=== PATIENT | female | born 1990 | race Caucasian/White ===

== ENCOUNTER 2019-12-31 23:53 | Inpatient (IN) ==
[2020-01-01] MEDS ORDERED: MEPERIDINE 50 MG/1 ML VIAL IV PRN (00:03)
[2020-01-01] MEDS ORDERED: BUTORPHANOL 2 MG/ML VIAL IV PRN (00:03)
[2020-01-01] MEDS ORDERED: ONDANSETRON 4 MG/2 ML VIAL IV PRN ×2 (00:03→19:56)
[2020-01-01] MEDS: LACTATED RINGERS 1,000 ML IV SCH ×2 (00:33→07:56)
[2020-01-01] MEDS: OXYTOCIN/LR 20 UNIT/1,000 ML BAG IV SCH ×2 (01:05→20:31)
[2020-01-01 01:08] LABS: Basophils % 0.3 % (0.0-0.8); Eosinophils # 0.1 10*3/uL (0.0-0.87); Eosinophils % 0.6 % (0.00-10.9); Hematocrit 31.4 VOL% (35.7-47.0); Hemoglobin 10.8 GM/DL (12.0-16.0); Immature Granulocytes % 0.6 %; Immature Granulocytes Absolute 0.06 #; Lymphocytes % 18.1 % (21.3-54.2); Mean Corpuscular HGB Conc 34.4 GM/DL (32-36); Mean Platelet Volume 10.3 FL (9.6-12.0); Monocytes % 8.5 % (1.7-12.7); Neutrophils % 71.9 % (38.7-73.9); Platelet Count 210 T/CUMM (130-400); Red Blood Count 3.57 MC/CUMM (3.8-5.5); Red Cell Distribution Width 11.8 % (9.3-17.3); White Blood Count 10.8 T/CUMM (4-12)
[2020-01-01] MEDS ORDERED: LACTATED RINGERS 1,000 ML IV ONE (08:57)
[2020-01-01] MEDS ORDERED: CITRIC ACID/SODIUM CITRATE 30 ML UDCUP PO ONE (08:57)
[2020-01-01] MEDS ORDERED: ePHEDrine 50 MG/ML VIAL IV PRN (08:57)
[2020-01-01] MEDS ORDERED: diphenhydrAMINE 50 MG/1 ML VIAL IV PRN ×2 (08:57)
[2020-01-01] MEDS ORDERED: FAMOTIDINE 20 MG/2 ML VIAL IV ONE (08:57)
[2020-01-01] MEDS ORDERED: NALOXONE 0.4 MG/ML VIAL IV PRN (08:57)
[2020-01-01 11:20] LABS: Bilirubin,Urine Negative (Negative); Blood, Urine Large mg/dL (Negative); Glucose,Urine (UA) Negative (Negative); Ketones,Urine 5 mg/dL (Negative); Mucus,Urine Few /LPF (Occasional); Nitrite,Urine Negative (Negative); Protein,Urine 30 MG/DL; RBC,Urine 320 /HPF (0-4); Squamous Epithelial Cell,Urine Occasional /HPF (0-10); Urine Appearance Slightly Hazy (Clear); Urine Color Yellow (Yellow); Urine Specific Gravity 1.021 (1.001-1.035); Urine Urobilinogen < 2.0 EU/DL (0.2-1.0)
[2020-01-01] MEDS: fentaNYL 2 MCG/ROPIV 0.2% EPID 100 ML EPIDURAL SCH ×2 (11:38→16:56)
[2020-01-01] MEDS ORDERED: miSOPROStoL 200 MCG TABLET ONE (16:06)
[2020-01-01] MEDS ORDERED: TRANEXAMIC ACID 1,000 MG/10 ML VIAL ONE (16:06)
[2020-01-01] MEDS ORDERED: CARBOPROST TROMETHAMINE 250 MCG/ML AMP IM ONE (16:08)
[2020-01-01] MEDS ORDERED: METHYLERGONOVINE 0.2 MG/1 ML AMP ONE (16:08)
[2020-01-01] MEDS ORDERED: BISACODYL 10 MG SUPP RECTAL PRN (19:56)
[2020-01-01] MEDS ORDERED: LANOLIN 50% CREAM 0.3 OZ TUBE TOP PRN (19:56)
[2020-01-01] MEDS ORDERED: ACETAMINOPHEN 325 MG TABLET PO PRN (19:56)
[2020-01-01] MEDS ORDERED: BENZOCAINE 20%/MENTHOL 0.5% SPRAY 56 GM CAN TOP PRN (19:56)
[2020-01-01] MEDS ORDERED: HYDROCORTISONE 2.5% RECTAL CREAM 30 GM TUBE TOP PRN (19:56)
[2020-01-01] MEDS ORDERED: WITCH HAZEL PADS 100/JAR TOP PRN (19:56)
[2020-01-01 20:02] LABS: Cord Venous Blood HCO3 21.6 MMOL/L; Cord Venous Blood PCO2 39.8 MMHG; Cord Venous Blood PO2 28.8
[2020-01-01] MEDS ORDERED: ACETAMINOPHEN/CODEINE 300-30 MG TABLET PO PRN (20:12)
[2020-01-02 05:38] LABS: Basophils % 0.2 % (0.0-0.8); Eosinophils % 0.1 % (0.00-10.9); Hematocrit 29.9 VOL% (35.7-47.0); Hemoglobin 9.9 GM/DL (12.0-16.0); Immature Granulocytes % 1.8 %; Immature Granulocytes Absolute 0.25 #; Lymphocytes # 1.4 10*3/uL (1.4-4.0); Lymphocytes % 10.6 % (21.3-54.2); Mean Corpuscular HGB Conc 33.1 GM/DL (32-36); Mean Corpuscular Volume 88.5 FL (87-102); Mean Platelet Volume 11.1 FL (9.6-12.0); Monocytes % 12.2 % (1.7-12.7); Neutrophils % 75.1 % (38.7-73.9); Platelet Count 163 T/CUMM (130-400); Red Blood Count 3.38 MC/CUMM (3.8-5.5); White Blood Count 13.6 T/CUMM (4-12)
[2020-01-02] MEDS: DOCUSATE SODIUM 100 MG CAPSULE PO SCH ×2 (10:05→20:49)
[2020-01-02] MEDS: IBUPROFEN 800 MG TABLET PO PRN ×2 (10:06→22:38)
[2020-01-02] MEDS: MULTIVITAMIN (PRENATAL) TABLET PO SCH (10:29)
[2020-01-02] MEDS: FERROUS SULFATE 325 MG TABLET PO SCH (10:40)
[2020-01-03 08:51] VITALS: BP 118/76
[2020-01-03] MEDS: FERROUS SULFATE 325 MG TABLET PO SCH (09:14)
[2020-01-03] MEDS: MULTIVITAMIN (PRENATAL) TABLET PO SCH (09:14)
[2020-01-03] MEDS: DOCUSATE SODIUM 100 MG CAPSULE PO SCH (09:14)
== END 2020-01-03 09:45 | disposition home or self-care (01) | DRG 807 ==
LOC: N.LDOUT 23:53 → N.LD 23:55 → MERGE 01-01 00:03 → N.LD 01-01 00:03 → N.OB 01-02 16:20
PROVIDERS: ADMIT Advanced Practice Midwife; ATTEND Obstetrics & Gynecology